=== PATIENT | female | born 1990 | race Caucasian/White ===

== ENCOUNTER 2018-02-22 21:46 | Emergency (ER) | payer MEDICAID ==
[~2018-02-22] VITALS: Ht 160 cm; Wt 75.0 kg
[2018-02-22 21:50] VITALS: BP 107/70
[2018-02-22] MEDS ORDERED: morphine 4 MG/ML inj SYRINge IV PRN (22:15)
[2018-02-22] MEDS ORDERED: ondansetron/PF 4mg/2ml inj IV ONE (22:15)
[2018-02-22] MEDS ORDERED: normal saline 1000ML IV soln IVB ONE (22:15)
[2018-02-22 22:32] LABS: BASOPHILS % (AUTO) 0.2 % (0-1); EOSINOPHILS # (AUTO) 0.3 X10'3 (0-0.9); EOSINOPHILS % (AUTO) 2.4 % (0-6); HEMATOCRIT 35.9 % (35.0-45.0); HEMOGLOBIN 12.1 g/dl (12.0-16.0); LYMPHOCYTES # (AUTO) 1.7 X10'3 (1.1-4.8); LYMPHOCYTES % (AUTO) 14.1 % (21-51); MEAN CORPUSCULAR HEMOGLOBIN 30.9 PG (27.0-31.0); MEAN CORPUSCULAR HGB CONC 33.7 % (33.0-36.5); MEAN CORPUSCULAR VOLUME 91.9 FL (78-98); MEAN PLATELET VOLUME 8.8 FL (7.4-10.4); MONOCYTES # (AUTO) 0.7 X10'3 (0-0.9); MONOCYTES % (AUTO) 5.6 % (2-12); NEUTROPHILS # (AUTO) 9.3 X10'3 (1.8-7.7); NEUTROPHILS % (AUTO) 77.7 % (42-75); PLATELET COUNT 228 X10'3 (140-440); RED CELL DISTRIBUTION WIDTH 12.6 % (11.5-14.5)
[2018-02-22 22:41] LABS: ALANINE AMINOTRANSFERASE 20 U/L (12-78); ALBUMIN 2.6 G/DL (3.4-5.0); ALBUMIN/GLOBULIN RATIO 0.7 (1.1-1.5); ALKALINE PHOSPHATASE 64 IU/L (46-116); ANION GAP 8 (8-16); ASPARTATE AMINO TRANSFERASE 14 U/L (10-37); BILIRUBIN,TOTAL 0.2 MG/DL (0.1-1.0); BLOOD UREA NITROGEN 8 MG/DL (7-18); BUN/CREATININE RATIO 15.7 (6.6-38.0); CALCIUM 8.7 MG/DL (8.5-10.1); CHLORIDE 105 MMOL/L (99-107); CREATININE 0.51 MG/DL (0.40-0.90); GLUCOSE 92 MG/DL (70-104); POTASSIUM 3.5 MMOL/L (3.5-5.1); SODIUM 137 MMOL/L (135-145); TOTAL PROTEIN 6.3 G/DL (6.4-8.2); eGFR > 90 ML/MIN
[2018-02-22 22:47] LABS: PROTHROMBIN TIME 9.8 SECONDS (9.0-12.0)
[2018-02-22 23:03] LABS: BETA HCG,QUANTITATIVE 8684 mIU/ml
== END 2018-02-22 22:30 | disposition short-term general hospital (02) ==
LOC: ER 21:46
DX: O46.8X1 Other antepartum hemorrhage, first trimester (principal); O62.9 Abnormality of forces of labor, unspecified; O99.331 Smoking (tobacco) complicating pregnancy, first trimester; F17.200 Nicotine dependence, unspecified, uncomplicated; Z88.1 Allergy status to other antibiotic agents; Z3A.01 Less than 8 weeks gestation of pregnancy
CPT/HCPCS: 36415; 80053; 84702; 85025; 85610; 96374; 96375; 99285

== ENCOUNTER 2018-04-23 20:15 | Emergency (ER) | payer MEDICAID ==
[~2018-04-23] VITALS: Ht 160 cm; Wt 77.0 kg
[2018-04-23 20:23] VITALS: BP 133/79
[2018-04-23] MEDS ORDERED: clindamycin 150mg capsule PO ONE (22:00)
[2018-04-23] MEDS ORDERED: acetaminophen 325mg tablet PO ONE (22:00)
[2018-04-23] MEDS ORDERED: CLIN300C85 PO (22:02)
[2018-04-23] MEDS ORDERED: ACET-812 PO (22:02)
== END 2018-04-23 22:28 | disposition home or self-care (01) ==
LOC: ER 20:15
DX: K08.89 Other specified disorders of teeth and supporting structures (principal); F17.200 Nicotine dependence, unspecified, uncomplicated; F12.90 Cannabis use, unspecified, uncomplicated
CPT/HCPCS: 99283

== ENCOUNTER 2019-10-15 21:17 | Emergency (ER) | payer MEDICAID ==
[~2019-10-15] VITALS: Ht 160 cm; Wt 83.0 kg
[~2019-10-15 21:17] MED LIST: ACET-812 PO; CLIN-97 PO
[2019-10-15] MEDS ORDERED: LIDOcaine 1% 30ml preserv. free vial IJ ONE (22:50)
[2019-10-16] MEDS ORDERED: SULF1TAB49 PO (00:20)
[2019-10-16] MEDS ORDERED: CEPH500C5 PO (00:20)
[2019-10-16] MEDS ORDERED: ibuprofen tablet 400 MG TABLET PO ONE (00:25)
[2019-10-16 00:49] VITALS: BP 153/93
== END 2019-10-16 00:51 | disposition home or self-care (01) ==
LOC: ER 21:17
DX: L02.511 Cutaneous abscess of right hand (principal); M79.644 Pain in right finger(s); M79.89 Other specified soft tissue disorders; F12.90 Cannabis use, unspecified, uncomplicated; Z79.2 Long term (current) use of antibiotics; Z79.899 Other long term (current) drug therapy
CPT/HCPCS: 26010; 73140; 76882; 87070; 87077; 87186; 99284; 99285

== ENCOUNTER 2019-12-19 07:04 | Emergency (ER) | payer MEDICAID ==
[~2019-12-19] VITALS: Ht 160 cm; Wt 83.0 kg
[~2019-12-19 07:04] MED LIST changes: +CEPH500C5 PO
[2019-12-19] MEDS ORDERED: LIDOcaine 1% 30ml preserv. free vial IJ ONE (07:45)
[2019-12-19] MEDS ORDERED: HYDROcodone/acetaminophen 10/325mg tab PO ONE (07:45)
[2019-12-19] MEDS ORDERED: ibuprofen tablet 400 MG TABLET PO ONE (07:45)
[2019-12-19 09:08] VITALS: BP 142/87
--- NOTE | 2019-12-19 09:25 | NUR ---
PT LFT HAND SOAKED IN LUKED WARM WATER PER MD ORDER FOR 10 MINS.
[2019-12-19] MEDS ORDERED: HYDR-3965 PO (09:27)
[2019-12-19] MEDS ORDERED: SULF1TAB49 PO (09:27)
[2019-12-19] MEDS ORDERED: CEPH500C5 PO (09:27)
== END 2019-12-19 09:57 | disposition home or self-care (01) ==
LOC: ER 07:04
DX: L03.012 Cellulitis of left finger (principal); J45.909 Unspecified asthma, uncomplicated; F17.200 Nicotine dependence, unspecified, uncomplicated; Z79.899 Other long term (current) drug therapy
CPT/HCPCS: 10060; 73140; 99283

== ENCOUNTER 2020-07-13 00:44 | Emergency (ER) | payer MEDICAID ==
[~2020-07-13] VITALS: Ht 160 cm; Wt 72.7 kg
[~2020-07-13 00:44] MED LIST changes: +CEPH-585 PO; -CEPH500C5 PO
[2020-07-13 00:54] VITALS: BP 130/82
[2020-07-13] MEDS ORDERED: CLIN150C8 PO (01:33)
[2020-07-13] MEDS ORDERED: ibuprofen tablet 400 MG TABLET PO ONE (01:35)
[2020-07-13] MEDS ORDERED: ondansetron 4mg rapidly disintigrating tab PO ONE (01:35)
[2020-07-13] MEDS ORDERED: clindamycin 150mg capsule PO ONE (01:35)
[2020-07-13] MEDS ORDERED: acetaminophen 325mg tablet PO ONE (01:35)
== END 2020-07-13 01:47 | disposition home or self-care (01) ==
LOC: ER 00:45
DX: K04.7 Periapical abscess without sinus (principal); K08.89 Other specified disorders of teeth and supporting structures; J45.909 Unspecified asthma, uncomplicated; Z79.2 Long term (current) use of antibiotics; Z79.899 Other long term (current) drug therapy
CPT/HCPCS: 41800; 99284

== ENCOUNTER 2023-10-03 14:48 | Emergency (ER) | payer MEDICAID ==
[~2023-10-03] VITALS: Ht 160 cm; Wt 72.7 kg
[~2023-10-03 14:48] MED LIST changes: -CEPH-585 PO; +CLIN-214 PO
[2023-10-03 15:12] VITALS: BP 107/62; PULSE 81; TEMP 98; O2SAT 100
[2023-10-03 15:39] VITALS: RESP 15
[2023-10-03 16:00] LABS: ALANINE AMINOTRANSFERASE 25 U/L (12-78); ALBUMIN 3.5 G/DL (3.4-5.0); ALBUMIN/GLOBULIN RATIO 0.9 (1.1-1.5); ALKALINE PHOSPHATASE 78 IU/L (46-116); ANION GAP 11 (8-16); ASPARTATE AMINO TRANSFERASE 18 U/L (10-37); BILIRUBIN,TOTAL 0.5 MG/DL (0.1-1.0); BLOOD UREA NITROGEN 15 MG/DL (7-18); BUN/CREATININE RATIO 18.3 (10.0-20.0); CHLORIDE 106 MMOL/L (99-107); CREATININE 0.82 MG/DL (0.40-0.90); GLUCOSE 120 MG/DL (70-104); LIPASE 28 U/L (16-77); POTASSIUM 4.3 MMOL/L (3.5-5.1); SODIUM 138 MMOL/L (135-145); TOTAL CARBON DIOXIDE 20.7 MMOL/L (24-32); TOTAL PROTEIN 7.3 G/DL (6.4-8.2); eCRCL 81 ML/MIN; eGFR 80 ML/MIN
[2023-10-03] MEDS ORDERED: ketorolac trometh. 30mg/ml inj. IM ONE (16:05)
[2023-10-03 16:09] LABS: BILIRUBIN,URINE NEGATIVE (Neg); CLARITY,URINE CLOUDY (Clear); COLOR,URINE YELLOW (Yellow); GLUCOSE, URINE NEGATIVE (Neg); KETONES,URINE NEGATIVE (Neg); LEUKOCYTE ESTERASE ,URINE SMALL (Neg); NITRITES, URINE NEGATIVE (Neg); OCCULT BLOOD,URINE LARGE (Neg); PH,URINE 7.5 (4.8-8.0); PROTEIN,URINE NEGATIVE (Neg); UROBILINOGEN,URINE 0.2 E.U/dL (0.2-1.0)
[2023-10-03 16:10] LABS: UA COLLECTION TYPE CLN CATCH MIDSTREAM
[2023-10-03 16:11] LABS: URINE HCG NEGATIVE (NEG)
[2023-10-03] MEDS: ondansetron 4mg rapidly disintigrating tab PO ONE (16:11)
[2023-10-03] MEDS: ketorolac tromethamine 15mg/ml inj. IM ONE (16:12)
[2023-10-03 16:15] LABS: RBC,URINE TNTC /HPF (0-2); SQUAMOUS EPITHELIAL CELL,UR MANY /LPF (FEW)
[2023-10-03 16:16] LABS: BACTERIA,URINE 2+ /HPF (Neg); WBC,URINE 20-30 /HPF (0-4)
[2023-10-03 17:03] LABS: BASOPHILS # (AUTO) 0.2 X10'3 (0-0.2); BASOPHILS % (AUTO) 1.7 % (0-1); EOSINOPHILS # (AUTO) 0.1 X10'3 (0-0.9); EOSINOPHILS % (AUTO) 0.9 % (0-6); HEMATOCRIT 42.4 % (35.0-45.0); HEMOGLOBIN 13.9 g/dl (12.0-16.0); LYMPHOCYTES # (AUTO) 1.4 X10'3 (1.1-4.8); LYMPHOCYTES % (AUTO) 11.9 % (21-51); MEAN CORPUSCULAR HGB CONC 32.7 g/dL (33.0-36.5); MEAN CORPUSCULAR VOLUME 91.7 FL (78-98); MEAN PLATELET VOLUME 8.7 FL (7.4-10.4); MONOCYTES # (AUTO) 0.6 X10'3 (0-0.9); MONOCYTES % (AUTO) 5.4 % (2-12); NEUTROPHILS # (AUTO) 9.7 X10'3 (1.8-7.7); NEUTROPHILS % (AUTO) 80.1 % (42-75); PLATELET COUNT 271 X10'3 (140-440); RED BLOOD COUNT 4.62 X10'6 (4.20-5.60); RED CELL DISTRIBUTION WIDTH 13.5 % (11.5-14.5); WHITE BLOOD COUNT 12.1 X10'3 (4.5-11.0)
[2023-10-03] MEDS ORDERED: PHEN-716 PO (17:18)
[2023-10-03] MEDS ORDERED: ONDA8TAB13 PO (17:18)
[2023-10-03] MEDS ORDERED: FLO0.4C PO (17:18)
[2023-10-03] MEDS ORDERED: HYDR-3965 PO (17:18)
== END 2023-10-03 17:29 | disposition home or self-care (01) ==
LOC: ER 14:49
DX: N20.1 Calculus of ureter (principal); J45.909 Unspecified asthma, uncomplicated; Z88.1 Allergy status to other antibiotic agents; Z79.1 Long term (current) use of non-steroidal anti-inflammatories (NSAID); Z79.2 Long term (current) use of antibiotics
CPT/HCPCS: 36415; 74176; 80053; 81001; 81025; 83690; 85025; 96372; 99285; J1885